=== PATIENT | male | born 1970 | race Caucasian/White ===

== ENCOUNTER 2018-06-15 16:02 | Observation (INO) | payer OTHER ==
--- NOTE | 2018-06-15 16:10 | EDPHY ---
H & P Time Seen by Provider: 06/15/18 16:09 HPI/ROS: CHIEF COMPLAINT: Chest discomfort HISTORY OF PRESENT ILLNESS: Patient had symptoms 1 week ago when walking cross the airport parking lot. He would waste picker his backpack knee would immediately get pressure which radiated to both shoulders his back and his jaw and he put his backpack down about 5-10 minutes later it went away. He got a rolling cart and was able to go home and felt okay until today when he is walking across the parking lot. He felt sudden tightness or discomfort shoulder shoulder across his chest radiating to his chin resolved now but his arms does feel really tired. Of note he had a calcium score last year that was negative and a negative treadmill stress test at [facility], he does have a grandfather of an aortic aneurysm. Right now chest symptoms have mostly resolved after about 10 min but his arms feel really tired. REVIEW OF SYSTEMS: Eye: no change in vision ENT: no sore throat Cardiac: HPI no palpitations or syncope Pulmonary: no cough or SOB Abdomen: no vomiting, diarrhea, abdominal pain Musculoskeletal: HPI Skin: no rash Neuro: no headache Constitutional: no fever : no urinary symptoms A comprehensive 10 point review of systems is otherwise negative aside from elements mentioned in the history of present illness. PAST MEDICAL HISTORY: Includes T4 fracture x2 from skiing, hypertension. Family history positive for aortic aneurysm in his grandfather Social history: Nonsmoker General Appearance: Alert and conversant, cooperative. Eyes: No scleral icterus. ENT, Mouth: Normal mucous membranes. Respiratory: Normal respiratory effort, breath sounds equal, lungs are clear to auscultation. Cardiovascular: Regular rate and rhythm. Pulses in both radial and both dorsalis pedis are normal. Gastrointestinal: Abdomen is soft and non tender. Neurological: Alert, face symmetric, normal motor and sensory in extremities. Bilateral orchard hand strength is good. Skin: Warm and dry, no rashes. Musculoskeletal: No peripheral edema. Psychiatric: Not agitated. Emergency Department course/MDM: Concern for ACS despite negative calcium scoring last year because of symptoms with exertion and radiation to his jaw, feel that would be less likely with thoracic spine problem. Differential diagnosis considered for chest pain including but not limited to myocardial ischemia, aortic dissection, pericarditis, pulmonary embolus, chest wall pain, pleural inflammation and pulmonary infectious causes. 1636: Troponin just less than the upper limit of normal at 0.07, patient declining chest CT because of history of recent radiation, plan consultation with Cardiology. Raylatha Serrano at 1645 for cardiology. He saw the patient in the emergency department, recommends admission to hospitalist service. Smoking Status: Never smoked Constitutional: Initial Vital Signs Temperature (C) 37 C 06/15/18 16:05 Heart Rate 89 06/15/18 16:05 Respiratory Rate 17 06/15/18 16:05 Blood Pressure 177/117 H 06/15/18 16:05 O2 Sat (%) 97 06/15/18 16:05 O2 Delivery Mode Room Air Allergies/Adverse Reactions: tetracycline [Tetracycline] Allergy (Verified 06/15/18 16:03) Home Medications: Medication Instructions Recorded NK [No Known Home Meds] 06/15/18 Medical Decision Making - Diagnostics EKG Interpretation: 12-lead EKG interpreted by me; official reading is in computer system. My interpretation is sinus rhythm, inferior Q noted, rate 95. A similar to November 2011. Differential Diagnosis: Differential diagnosis considered for chest pain including but not limited to myocardial ischemia, aortic dissection, pericarditis, pulmonary embolus, chest wall pain, pleural inflammation and pulmonary infectious causes. Consult/Admit Bed Type: [place] [id number] - Data Points Laboratory Results: Laboratory Results 06/15/18 16:20 06/15/18 16:20 06/15/18 06/15/18 06/15/18 16:25 16:23 16:20 WBC RBC Hgb POC Hgb 16.3 gm/dL gm/dL (13.7-17.5) Hct POC Hct 48 % % (40-51) MCV MCH MCHC RDW Plt Count MPV Neut % (Auto) Lymph % (Auto) Boyd % (Auto) Eos % (Auto) Baso % (Auto) Nucleat RBC Rel Count Absolute Neuts (auto) Absolute Lymphs (auto) Absolute Monos (auto) Absolute Eos (auto) Absolute Basos (auto) Absolute Nucleated RBC Immature Gran % Immature Gran # POC Sodium 143 mEq/L mEq/L (135-145) Sodium 139 mEq/L mEq/L (135-145) POC Potassium 3.6 mEq/L mEq/L (3.3-5.0) Potassium 4.0 mEq/L mEq/L (3.5-5.2) POC Chloride 103 mEq/L mEq/L (97-110) Chloride 105 mEq/L mEq/L (97-110) Carbon Dioxide 25 mEq/l mEq/l (22-31) POC Total CO2 29 mEq/L mEq/L (22-31) Anion Gap 9 mEq/L mEq/L (6-14) POC BUN 16 mg/dL mg/dL (7-23) BUN 16 mg/dL mg/dL (7-23) Creatinine 0.9 mg/dL mg/dL (0.7-1.3) POC Creatinine 1.1 mg/dL mg/dL (0.7-1.3) Estimated GFR > 60 Glucose 109 mg/dL H mg/dL (70-100) POC Glucose 110 mg/dL H mg/dL (70-100) Calcium 10.2 mg/dL mg/dL (8.5-10.4) POC Troponin I 0.07 ng/mL ng/mL (0.00-0.08) 06/15/18 16:20 WBC 10.06 10^3/uL H 10^3/uL (3.80-9.50) RBC 5.68 10^6/uL 10^6/uL (4.40-6.38) Hgb 16.5 g/dL g/dL (13.7-17.5) POC Hgb Hct 48.6 % % (40.0-51.0) POC Hct MCV 85.6 fL fL (81.5-99.8) MCH 29.0 pg pg (27.9-34.1) MCHC 34.0 g/dL g/dL (32.4-36.7) RDW 12.6 % % (11.5-15.2) Plt Count 250 10^3/uL 10^3/uL (150-400) MPV 9.6 fL fL (8.7-11.7) Neut % (Auto) 70.6 % % (39.3-74.2) Lymph % (Auto) 17.6 % % (15.0-45.0) Boyd % (Auto) 8.3 % % (4.5-13.0) Eos % (Auto) 2.1 % % (0.6-7.6) Baso % (Auto) 0.8 % % (0.3-1.7) Nucleat RBC Rel Count 0.0 % % (0.0-0.2) Absolute Neuts (auto) 7.11 10^3/uL H 10^3/uL (1.70-6.50) Absolute Lymphs (auto) 1.77 10^3/uL 10^3/uL (1.00-3.00) Absolute Monos (auto) 0.83 10^3/uL H 10^3/uL (0.30-0.80) Absolute Eos (auto) 0.21 10^3/uL 10^3/uL (0.03-0.40) Absolute Basos (auto) 0.08 10^3/uL 10^3/uL (0.02-0.10) Absolute Nucleated RBC 0.00 10^3/uL 10^3/uL (0-0.01) Immature Gran % 0.6 % % (0.0-1.1) Immature Gran # 0.06 10^3/uL 10^3/uL (0.00-0.10) POC Sodium Sodium POC Potassium Potassium POC Chloride Chloride Carbon Dioxide POC Total CO2 Anion Gap POC BUN BUN Creatinine POC Creatinine Estimated GFR Glucose POC Glucose Calcium POC Troponin I Medications Given: Discontinued Medications Amlodipine Besylate (Norvasc) 5 mg PO EDNOW ONE Stop: 06/15/18 17:53 Last Admin: 06/15/18 18:42 Dose: 5 mg Aspirin (Aspirin) 324 mg PO EDNOW ONE Stop: 06/15/18 17:55 Last Admin: 06/15/18 18:42 Dose: 324 mg Point of Care Test Results: Chemistry 06/15/18 06/15/18 16:25 16:23 POC Sodium 143 mEq/L mEq/L (135-145) POC Potassium 3.6 mEq/L mEq/L (3.3-5.0) POC Chloride 103 mEq/L mEq/L (97-110) POC Total CO2 29 mEq/L mEq/L (22-31) POC BUN 16 mg/dL mg/dL (7-23) POC Creatinine 1.1 mg/dL mg/dL (0.7-1.3) POC Glucose 110 mg/dL H mg/dL (70-100) POC Troponin I 0.07 ng/mL ng/mL (0.00-0.08) ISTAT H&H 06/15/18 16:25 POC Hgb 16.3 gm/dL gm/dL (13.7-17.5) POC Hct 48 % % (40-51) Departure - Departure Disposition: [facility] Inpatient Acute Clinical Impression: Chest pain Condition: Good
--- NOTE | 2018-06-15 16:26 | CPEKG ---
Test Reason : OPEN Blood Pressure : / mmHG Vent. Rate : 095 BPM Atrial Rate : 095 BPM P-R Int : 153 ms QRS Dur : 112 ms QT Int : 357 ms P-R-T Axes : 024 -09 -14 degrees QTc Int : 449 ms Sinus rhythm Inferior infarct, age indeterminate Confirmed by Jeremy Hansen ([id number]) on 06/15/2018 4:25:23 PM Referred By: Jeremy Hansen Confirmed By:Jeremy Hansen
[2018-06-15 16:31] LABS: PLATELET COUNT 250 10^3/uL (150-400)
[2018-06-15] MEDS ORDERED: ONDANSETRON DISINTEGRATING 4 MG TAB PO PRN (17:37)
[2018-06-15] MEDS ORDERED: ACETAMINOPHEN 325 MG TAB PO PRN (17:37)
[2018-06-15] MEDS ORDERED: ONDANSETRON 4 MG/2 ML VIAL IVP PRN (17:37)
[2018-06-15] MEDS ORDERED: amLODIPine BESYLATE 5 MG TAB PO ONE (17:52)
[2018-06-15] MEDS ORDERED: NITROGLYCERIN 0.4 MG BTL SL PRN (17:54)
[2018-06-15] MEDS ORDERED: ASPIRIN 81 MG CHEWABLE TAB PO ONE (17:54)
--- NOTE | 2018-06-15 18:56 | GCON ---
[f rep st] CONSULTATION REFERRING PHYSICIAN: Jeremy Hansen MD SUPERVISING RAIL CAR REPAIRMAN: Dr. Zuluaga. INDICATION FOR CARDIOLOGY CONSULTATION: Exertional chest pressure and jaw pain. HISTORY OF PRESENT ILLNESS: The patient is a pleasant 47-year-old male. He has significant past history that includes borderline hypertension. Patient reporting that up to 2 weeks ago, he had been feeling well. Then approximately on Tuesday, May 27, after a heavy day of skiing, he woke up with a mild midsternal chest pressure, went away fairly quickly and reported he did not think much about it. He does state on May 29, when returning from his ski trip at the airport, he was carrying some heavy bags, reporting again developing a similar midsternal chest pressure, this time radiating into both shoulders and up to his neck. He stopped, rested for a few seconds and reported symptoms subsided. He did report he did pickler helper his bag again and had similar symptoms, stopping, reporting that he had a Hilario help him carry his bags out from there, stating that after the symptoms of chest pain subsided, he became fairly fatigued, lasting approximately a day. He states he has had no further events of the symptoms until today, when he was walking across his work parking lot, developing a similar midsternal jaw pain with shoulder and neck. Did subside within a few minutes, but feeling significantly fatigued afterwards. He decided to come to [facility] for further evaluation. Upon arrival, he did undergo electrocardiogram, which noted sinus rhythm with noted inverted T -waves in lead III and AVF, with upward T-waves in V1. No acute ST or T-wave abnormalities. He also underwent laboratory studies, noting with a normal troponin level of 0.07. He was also noted to be extremely hypertensive upon arrival, with blood pressure of 177/117. At the time of my examination, he reports he is currently pain free, but does feel fatigued. He does state with each episode of his chest pressure, he has noted some mild nausea and diaphoresis, but has had no shortness of breath. He denies of any history of shortness of breath and reports no orthopnea, PND, edema, lightheadedness, near- syncope, or syncopal events. Reporting no symptoms suggestive of TIA or CVA. He does mention that since corporate auditor, he has been noting to have episodes of accelerated heart rate, coming on for few seconds, then dissipating, describing it as a "racing heartbeat." He does not feel that these have worsened and he has had no associated symptoms of near-syncope or syncopal events with them. He also informs me that in the prior week, he has been dealing with an upper respiratory infection with an ongoing cough, muscle aches and fatigue, reporting no fevers. Does feel that this has improved late last week, but continues to have a mild cough now. It is unknown if he has had any fevers with this. Denies of any bleeding issues, reporting no hematemesis or bloody stools. Patient with significant cardiac risk factors of borderline hypertension and sex. Denies any history of diabetes, smoking, hyperlipidemia, peripheral vascular disease, or family history of coronary artery disease at early on stage. PAST MEDICAL HISTORY: The patient's significant past medical history includes borderline hypertension , basal cell carcinoma and fractured T-spine. PAST SURGICAL HISTORY: TS spine fusion 3 years ago. He had a Mohs surgical procedure done approximately 3 weeks ago for his basal cell carcinoma. FAMILY HISTORY: He does state father had an aneurysm. Mother has hypertension. Denies of any family history of coronary artery disease at early on stage. SOCIAL HISTORY: He works in [employer] support. He is . He has 2 teenage children, who are both alive and well. He denies of any smoking. Reports no illicit drug use. Reports drinking 3 to 4 drinks on a daily basis. ALLERGIES: He has no known drug allergies. HOME MEDICATIONS: He reports none. REVIEW OF SYSTEMS: A 10-point review of systems is done on this patient, all negative except as mentioned above. PHYSICAL EXAMINATION: GENERAL APPEARANCE: A medium-built, well-groomed male. He is alert and oriented to person, place, time and situation. Appears to be under no acute distress at the time of my examination. VITAL SIGNS: Current vital signs are a blood pressure of 177/87, heart rate 84, respirations 18, saturating 95% on room air, temperature of 37.0 degrees Celsius. HEENT: Head is normocephalic. Lips and tongue are pink and moist with no signs of cyanosis. Conjunctivae are pink. NECK: Trachea is midline. +2 carotid pulses bilateral. No auscultated bruits. No jugular vein distention. RESPIRATORY: Lungs are clear to auscultation. No rhonchi, rales, or wheezes. No accessory muscle use. No intercostal muscle retraction noted. CARDIAC: Regular rate, regular rhythm, S1, S2. No S3, S4, gallops, rubs, or murmurs noted. ABDOMEN: Soft, nontender. Bowel sounds x4 quadrants. No organomegaly. No palpable masses. SKIN: [place], warm and dry. No cyanosis. No clubbing. No peripheral edema. A large healed incision on his upper midline back from previous surgery. Patient also noted with mild healing incision on the right side of face from recent Mohs procedure. VASCULAR: +2 carotids bilateral, +2 radials bilateral, +2 dorsalis pedis and posterior tibial pulses bilateral. LABS: Current laboratory studies show WBC of 10.06, hemoglobin of 16.5, hematocrit of 48.6, platelet count 250. Sodium 139, potassium 4.0, chloride 105 , CO2 25, BUN 16, creatinine 0.9. Glucose 109, calcium 10.2, troponin of 0.07. STUDIES: Electrocardiogram as mentioned above. Note, the patient had seen our practice in the past and he had an exercise treadmill done on March 14, 2017, in which he exercised for 12 minutes and 40 seconds, 14.7 METs. He obtained a heart rate of 167 beats per minute, which was 97% of his MPHR. He had no significant ST shifts at peak exercise suggesting of ischemia. Davidson treadmill score of 12, placing him at low cardiovascular risk. The patient also with a history of cardiac calcium score in which he was 0, which was done March 17, 2017. ASSESSMENT AND PLAN: 1. Exertional chest pressure: Concerning for patient with noted mildly abnormal EKG. In comparison to previous EKGs in our office of February of 2017, with no significant change. . Patient noted to have a normal troponin level of 0.07, but his symptoms do raise concern about potential possible exertional angina (CCS class III). It is felt best that patient be admitted overnight and placed on continuous cardiac monitoring. We will plan on cycling his troponins x3 and plan a repeated electrocardiogram. Symptoms may also be due to, but not limited to pulmonary embolism, aortic dissection, musculoskeletal, gastroesophageal reflux disease. I would also like him to get a D-dimer today. The patient's ER doctor, Dr. Rubio, has offered for him to undergo CT scan for evaluation due to family history of aortic aneurysm, which he declines, not wanting any further radiation. I would like him to take 324 mg of aspirin now. I have ordered him sublingual nitroglycerin to use p.r.n. Depending on results of his laboratory studies overnight, if troponins stay negative and he remains pain free, we will plan on performing an ETT MPI study in the morning. If he does bump his troponins or if he has more exertional chest pain, then we will consider having him undergo coronary angiogram. We will make him n.p.o. after midnight. Echocardiogram to be done 1st thing in the morning to evaluate LV systolic function. 2. Hypertension: The patient reporting borderline hypertension. He has extremely elevated blood pressure at this time. With his chest pain, I will give him 1 dose of Norvasc now to see if this helps bring his blood pressure down and is also known as antianginal medication. We will monitor and evaluate. Potentially, he may need to be put on long-term medication for this. Due to the elevated blood pressure and episode of chest pressure, I would like him to have an echocardiogram done to evaluate cardiac structure and function. 3. Palpitations: The patient reporting fluttering sensation for assisted. Reporting no associated symptoms of lightheadedness, near-syncope, or syncopal events. No arrhythmias have been noted on monitoring. We will continue him on telemetry as mentioned above. I have ordered for him to have a TSH level drawn with a.m. labs. We will have him get an echocardiogram, as mentioned above, to evaluate cardiac structure and function. Thank you for this consultation. We will be lack glad to follow along with you. /[id number]/MODL MTDD
--- NOTE | 2018-06-15 19:06 | PDGENHP ---
History and Physical - Chief Complaint Chest pain - History of Present Illness 47 y/o male w/hx of borderline HTN presenting w/ exertional-like chest pain symptoms which resolve after approximately 10 minutes. He tells me 2 weeks ago , he was skiing in [place]. After a full day of skiing, he was relaxing reading a book when he felt chest tightness bilaterally in the area of his clavicle w/radiation down both arms and up both sides of his neck. Experienced nausea, diaphoresis during the episode. Resolved about 10 minutes afterwards. While he was at the airport, he went to molded goods spot picker his heavy backpack and the symptoms returned. He set his bag back down and had to sit down. Then he retrieved a rolling cart to carry his bag the rest of the way. Last year at [facility], he had a negative calcium score and an unremarkable stress test. He is symptom free currently besides feeling fatigue and his arms feeling heavy/fatigue. History Information - Allergies/Home Medication List Allergies/Adverse Reactions: tetracycline [Tetracycline] Allergy (Verified 06/15/18 16:03) Home Medications: Cholecalciferol Vit D3 [Vitamin D3 (*)] 3,000 units PO DAILY 06/15/18 [Last Taken Unknown] Herbals/Supplements -Info Only 1 ea PO DAILY 06/15/18 [Last Taken Unknown] Multivitamins [Multivitamin (*)] 1 each PO DAILY 06/15/18 [Last Taken Unknown] I have personally reviewed and updated: family history, medical history, social history, surgical history Past Medical History: T4 fracture from skiing. Chronic bilateral thoracic back pain. Basal cell carcinoma - Past Medical History hypertension (Borderline) - Surgical History Reports: spinal surgery (Thoracic spine fusion 3 years ago) Additional surgical history: MOHS procedure a few weeks ago for his basal cell carcinoma which was on his nose - Family History Positive for: hypertension (Mother) Additional family history: Aneurysm - father - Social History Smoking Status: Never smoked Alcohol Use: Occasionally (3-5 drinks/week) Drug Use: None Additional social history: , has two sons and two dogs plus a mortage. Stress level has been increasing. Works as a retail support associate for a [employer] Review of Systems Review of Systems: ROS: 10pt was reviewed & negative except for what was stated in HPI & below Physical Exam Physical Exam: Lab data and imaging were reviewed. White blood cell count: 10.07 hemoglobin and hematocrit: 16.5 and 40.6 Platelet count: 250 Sodium: 139 Potassium: 4.0 Chloride: 105 Carbon dioxide: 25 BUN/Cr: 16/0.9 Troponin: 0.07 D-dimer: Less than 0.27 EKG: Mildly abnormal both comparison to previous EKGs in February 2017 there has been no significant change Chest x-ray: Negative Temp Pulse Resp BP Pulse Ox 36.4 C 85 18 169/99 H 96 06/15/18 18:07 06/15/18 18:26 06/15/18 18:26 06/15/18 18:26 06/15/18 18:26 Constitutional: no apparent distress, appears nourished, not in pain Eyes: PERRL, anicteric sclera, EOMI Ears, Nose, Mouth, Throat: moist mucous membranes, hearing normal, ears appear normal, no oral mucosal ulcers Cardiovascular: regular rate and rhythym, no murmur, rub, or gallop, No edema Peripheral Pulses: 2+: dorsalis-pedis (R), dorsalis-pedis (L) Respiratory: no respiratory distress, no rales or rhonchi, clear to auscultation Gastrointestinal: normoactive bowel sounds, soft, non-tender abdomen, no palpable masses Genitourinary: no bladder fullness, no bladder tenderness Skin: warm, normal color, no rashes or abrasions, no fluctuance, no induration, No mottled Musculoskeletal: full muscle strength, no muscle tenderness, normal joint ROM, no joint effusions Neurologic: AAOx3, sensation intact bilaterally, CN II-XII Intact Psychiatric: interacting appropriately, not anxious, not encephalopathic, thought process linear Lymph, Heme, Immunologic: no cervical LAD, no supraclavicular LAD Lab Data & Imaging Review 06/15/18 16:20 06/15/18 16:20 WBC 10.06 10^3/uL (3.80-9.50) H 06/15/18 16:20 RBC 5.68 10^6/uL (4.40-6.38) 06/15/18 16:20 Hgb 16.5 g/dL (13.7-17.5) 06/15/18 16:20 POC Hgb 16.3 gm/dL (13.7-17.5) 06/15/18 16:25 Hct 48.6 % (40.0-51.0) 06/15/18 16:20 POC Hct 48 % (40-51) 06/15/18 16:25 MCV 85.6 fL (81.5-99.8) 06/15/18 16:20 MCH 29.0 pg (27.9-34.1) 06/15/18 16:20 MCHC 34.0 g/dL (32.4-36.7) 06/15/18 16:20 RDW 12.6 % (11.5-15.2) 06/15/18 16:20 Plt Count 250 10^3/uL (150-400) 06/15/18 16:20 MPV 9.6 fL (8.7-11.7) 06/15/18 16:20 Neut % (Auto) 70.6 % (39.3-74.2) 06/15/18 16:20 Lymph % (Auto) 17.6 % (15.0-45.0) 06/15/18 16:20 [place] % (Auto) 8.3 % (4.5-13.0) 06/15/18 16:20 Eos % (Auto) 2.1 % (0.6-7.6) 06/15/18 16:20 Baso % (Auto) 0.8 % (0.3-1.7) 06/15/18 16:20 Nucleat RBC Rel Count 0.0 % (0.0-0.2) 06/15/18 16:20 Absolute Neuts (auto) 7.11 10^3/uL (1.70-6.50) H 06/15/18 16:20 Absolute Lymphs (auto) 1.77 10^3/uL (1.00-3.00) 06/15/18 16:20 Absolute Monos (auto) 0.83 10^3/uL (0.30-0.80) H 06/15/18 16:20 Absolute Eos (auto) 0.21 10^3/uL (0.03-0.40) 06/15/18 16:20 Absolute Basos (auto) 0.08 10^3/uL (0.02-0.10) 06/15/18 16:20 Absolute Nucleated RBC 0.00 10^3/uL (0-0.01) 06/15/18 16:20 Immature Gran % 0.6 % (0.0-1.1) 06/15/18 16:20 Immature Gran # 0.06 10^3/uL (0.00-0.10) 06/15/18 16:20 D-Dimer < 0.27 ug/mLFEU (0.00-0.50) 06/15/18 18:03 POC Sodium 143 mEq/L (135-145) 06/15/18 16:25 Sodium 139 mEq/L (135-145) 06/15/18 16:20 POC Potassium 3.6 mEq/L (3.3-5.0) 06/15/18 16:25 Potassium 4.0 mEq/L (3.5-5.2) 06/15/18 16:20 POC Chloride 103 mEq/L (97-110) 06/15/18 16:25 Chloride 105 mEq/L (97-110) 06/15/18 16:20 Carbon Dioxide 25 mEq/l (22-31) 06/15/18 16:20 POC Total CO2 29 mEq/L (22-31) 06/15/18 16:25 Anion Gap 9 mEq/L (6-14) 06/15/18 16:20 POC BUN 16 mg/dL (7-23) 06/15/18 16:25 BUN 16 mg/dL (7-23) 06/15/18 16:20 Creatinine 0.9 mg/dL (0.7-1.3) 06/15/18 16:20 POC Creatinine 1.1 mg/dL (0.7-1.3) 06/15/18 16:25 Estimated GFR > 60 06/15/18 16:20 Glucose 109 mg/dL (70-100) H 06/15/18 16:20 POC Glucose 110 mg/dL (70-100) H 06/15/18 16:25 Calcium 10.2 mg/dL (8.5-10.4) 06/15/18 16:20 POC Troponin I 0.07 ng/mL (0.00-0.08) 06/15/18 16:23 Assessment & Plan Plan: 47 y/o male presenting w/ intermittent chest pain that radiates down arms and up bilateral neck w/associated symptoms of nausea and diaphoresis occurring over the last 2 weeks. Family hx of HTN and aortic aneurysm. His vital signs presenting to the emergency room with the following: Blood pressure 177/117, heart rate 89, respirations 17, oxygen saturation on room air 97%, temperature 37.0 degrees. Current set of vitals: Blood pressure 169/99, heart rate 85, respiration 18, 96% on room air. Refused chest CTA by ED d/t recent radiation exposure, D-dimer negative. #Concern for ACS -Negative calcium score and stress test last year -Cards consulted and NEEDLE PROCESS FELT GOODS SUPERVISOR Ray Serrano evaluated pt. Please refer to Mr. Serrano's full evaluation in separate note. -Cycle trops Q6H x 2, first troponin negative -Lipid/Magnesium/Protime/TSH in AM or pending -Cont tele/PCU monitoring -EKG/Echo in AM -Received ASA -Nitroglycerin tabs PRN -If above is negative, suspect musculoskeletal component d/t hx T4 fx s/p spine fusion 3 years ago. Completed PT in the fall of last year. #HTN -Amlodipine initiated #Mild leukocytosis (10.06) -Suspect reactive, not infectious. Afebrile. Cont to monitor and if becomes symptomatic, check white count in AM. Diet: Cardiac, NPO at midnight tonight VTE PPX: Up ad shanta, SAMMY palmer Code: Full Dispo: Admit to observation
--- NOTE | 2018-06-15 19:06 | HOSPPROG ---
Hospitalist Progress Note Assessment/Plan: Pt seen and examined Please refer to TEST EVALUATOR's H&P Pt with exertional cp and HTN Cardiology consulted and we discussed the case VSS #Exertional chest pain #HTN Plan: per TEST EVALUATOR H&P cp r/o need for cardiac cath per cardiology Objective: Vital Signs Temp Pulse Resp BP Pulse Ox 36.4 C 85 18 169/99 H 96 06/15/18 18:07 06/15/18 18:26 06/15/18 18:26 06/15/18 18:26 06/15/18 18:26 - Physical Exam Constitutional: no apparent distress Eyes: PERRL, EOMI Ears, Nose, Mouth, Throat: moist mucous membranes Respiratory: no respiratory distress ICD10 Worksheet Patient Problems: Problems Problem Status Onset Chest pain Acute - ICD10 Problem Qualifiers (1) Chest pain
[2018-06-15] MEDS ORDERED: LORazepam 0.5 MG TAB PO PRN (22:32)
[2018-06-16 04:08] LABS: INR 1.04 (0.83-1.16); PROTIME(PATIENT) 13.2 SEC (12.0-15.0)
[2018-06-16] MEDS: METOPROLOL TARTRATE 25 MG TAB PO SCH ×2 (08:17→20:29)
[2018-06-16] MEDS ORDERED: ASPIRIN 325 MG TAB PO SCH (09:00)
[2018-06-16] MEDS ORDERED: amLODIPine BESYLATE 5 MG TAB PO SCH (09:00)
--- NOTE | 2018-06-16 09:16 | ECHO ---
[email or web address] [address] Main: [phone] Echocardiography Examination Transthoracic Name: SADIQ SINCLAIR MR#: Study Date: 06/16/2018 Study Time: 07:53 AM Date of : 1970 Age: 47 year(s) Height: 175.3 cm (69 in.) Weight: 79.38 kg (175 lb.) BSA: 1.95 m2 Gender: Male Examination: Echo Contrast: Image Quality: Adequate Rhythm: Normal sinus rhythm Heart Rate: 74 bpm BP: 142 mmHg/89 mmHg Indication: Hypertension, CP Procedure Staff Referring Physician: Communications Associate: Nury Morales [facility] Reading Physician: Stoney Zuluaga MD Requesting Provider: Ordering Physician: Ray Serrano NP Indication: Hypertension, CP Measurements Chambers AV/MV Label Value Normal Value Label Value Normal Value LVOT Vmax 1.14 m/s (0.7m/s - 1.1m/s) AV PGmax 5 mmHg LVOTd 2.3 cm (1.9cm - 2.1cm) AV Vmax 1.16 m/s LVDd, 2D 4 cm (4.2cm - 5.9cm) [place] (Vmax) 4.1 cm2 LVDs, 2D 2.4 cm (2.1cm - 4cm) MV E Vmax 0.64 m/s IVSd, 2D 0.7 cm (0.6cm - 1.1cm) MV A Vmax 0.69 m/s LVPWd, 2D 1 cm (0.6cm - 1cm) MV E/A 0.93 LVEF, BP 62 % (55% - 70%) MV E/E' lateral 9 LVEF, 2D 73 % (54% - 74%) MV E/E' septal 9.1 (0.5 - 1.7) RVDd, 2D 2.2 cm (1.9cm - 3.8cm) MV DT 88 ms TAPSE 1.9 cm MV E' septal 0.07 m/s LA Volume, BP 49 ml (18ml - 58ml) MV E' lateral 0.07 m/s LAESV index, BP 25.1 ml/m2 MV E/E' mean 9.14 RA Area 10 cm2 MV E' mean 0.07 m/s Additional Vessels TV/PV Label Value Normal Value Label Value Normal Value AoAsc 3.7 cm PV PGmax 5 mmHg AoRoot, 2D 3.8 cm (1.4cm - 2.6cm) PV Vmax, Caliper 1.07 m/s (0.6m/s - 0.9m/s) Patient: SADIQ SINCLAIR MRN: Study Date: 06/16/2018 Page 1 of 2 07:53 AM Conclusions Left Ventricle: EF range is estimated at 60 % - 65 %. Left ventricle wall thickness is normal. There is subtle hypokineisis of the distal anterior septum only seen in the parasternal long axis view. Aortic Valve: Trivial aortic regurgitation is present. Tricuspid Valve: Trivial tricuspid regurgitation. Findings Left Ventricle: Left ventricle is normal in size. Normal global systolic left ventricular function. EF evaluated by EF (single plane Mack's). The ejection fraction, measured by Simpsons method, is 62 %. EF range is estimated at 60 % - 65 %. Left ventricle wall thickness is normal. There is subtle hypokineisis of the distal anterior septum only seen in the parasternal long axis view.Left ventricular diastolic function parameters are normal. Right Ventricle: Normal size right ventricle. Right ventricular systolic function is normal. Left Atrium: The left atrium is normal in size. Mitral Valve: Mitral valve appears structurally normal. No mitral regurgitation. No mitral valve stenosis. Aortic Valve: The aortic valve is structurally normal and trileaflet. Trivial aortic regurgitation is present. There is no aortic stenosis. Tricuspid Valve: Tricuspid valve leaflets are structurally normal. Trivial tricuspid regurgitation. No tricuspid valve stenosis. Pulmonary artery pressure cannot be assessed due to inadequate TR signal. Aorta: The aortic root size in 2D measures 3.8 cm. The aortic root exhibits normal size. The ascending aorta measures 3.7 cm. Ascending aorta is normal in size. Aorta Measurements AoRoot, 2D is 3.8 cm. IVC: The inferior vena cava is poorly visualized. Pericardium: Trivial anterior pericardial effusion. Exam Details Procedure Ordered: Echo Procedure Status: Routine study Image Quality: Adequate Facility Location: Cardiac Echo 1 (No Signature Object) Patient: SADIQ SINCLAIR MRN: Study Date: 06/16/2018 Page 2 of 2 07:53 AM [id number]
[2018-06-16] MEDS ORDERED: diphenhydrAMINE 25 MG CAP PO ONE ×3 (09:37→10:12)
[2018-06-16] MEDS ORDERED: TEMAZEPAM 15 MG CAP PO PRN (09:37)
[2018-06-16] MEDS ORDERED: DIAZEPAM 5 MG TAB PO ONE ×2 (09:37→09:40)
[2018-06-16] MEDS ORDERED: FAMOTIDINE 20 MG TAB PO ONE ×2 (09:37→09:40)
[2018-06-16] MEDS ORDERED: ASPIRIN EC 325 MG TAB PO ONE (09:40)
[2018-06-16] MEDS ORDERED: NS 1,000 ML IV ONE (09:40)
[2018-06-16] MEDS ORDERED: NS 1,000 ML IV SCH ×2 (09:45→12:30)
--- NOTE | 2018-06-16 09:45 | PDCARPN ---
Cardiology Progress Note Chief Complaint: Patient reporting mild episode of chest pressure last evening. Currently pain- free. Assessment/Plan: Assessment: 47-year-old male with significant past history that include borderline hypertension. Experiencing ongoing exertional chest pressure over last 2 weeks. Initial EKG showing sinus rhythm with noted inverted T-waves in lead III and AVF and up or T-wave in V1. Normal troponin level on admission, with hypertension of 177/117. Admitted to PCU for overnight observation. 06/16/2018: Patient did have troponin elevation, peaking at 3:00 a.m. At 0.097, considered indeterminate area. Patient stating 1 episode of chest pressure last evening at 10:00 p.m.. Was given sublingual nitroglycerin, reporting pain- free within 5 min. Echocardiogram done this a.m. Showing subtle hypokinesis of distal anterior septum of LV. With normal ejection fraction at 60 65%. Plan: 1. Chest pressure: Patient continues to have a chest pressure with relief from nitroglycerin. Indeterminate troponin elevation with wall motion abnormality noted on echocardiogram. Is felt best that the patient to undergo coronary angiogram for further evaluation for cardiac ischemia. Risks and benefits of this procedure were explained to the patient and his , in which they both verbalize understanding. Patient has been started on aspirin therapy at 325 mg. He has also received a dose of metoprolol tartrate. Will hold off on anticoagulation, due to him going to the [employer] urgently. 2. Hypertension: Blood pressure improved since starting on amlodipine last evening. Will continue him on 5 mg p.o. Q.day. Started him on metoprolol tartrate at 12.5 mg p.o. Twice daily. Will re-evaluate after heart catheterization. 06/16/18 09:44 Subjective: Patient reporting mild episode of chest pressure last evening, relieved with sublingual nitroglycerin. Reporting currently pain-free. Denies of any shortness of breath, orthopnea, PND, edema, lightheadedness, near-syncope or syncopal events. Reviewed/Discussed With: other (Dr Zuluaga) Objective: Vital Signs (8 Hrs) Temp Pulse Resp BP Pulse Ox 06/16/18 08:22 37.9 C 74 18 157/102 H 92 06/16/18 08:17 81 142/89 H 06/16/18 03:41 36.9 C 68 16 146/86 H 96 Intake/Output (24 Hrs) 06/15/18 06/16/18 06/17/18 05:59 05:59 05:59 Intake Total 0 Balance 0 Intake: IV Intake (ml) 0 Other: Weight 80.1 kg Result Diagrams: 06/15/18 16:20 06/15/18 16:20 Cardiac Labs: Cardiac Lab Results (72 Hrs) 06/16/18 06/16/18 06/15/18 08:20 03:46 22:06 Troponin I 0.052 H 0.097 H 0.066 H - Physical Exam Constitutional: WDWN, no apparent distress Ears, Nose, Mouth, Throat: moist mucous membranes Cardiovascular: regular rate and rhythm, no murmurs, pulses symmetric bilat, No jugular vein distention, No carotid bruit Peripheral Pulses: 2+: carotid (R), carotid (L), dorsalis-pedis (R), dorsalis- pedis (L) Respiratory: clear to auscultate bilat, no crackles, no wheezes Gastrointestinal: normoactive bowel sounds Skin: warm, no edema Neurologic: AAOx3 Psychiatric: cooperative, interactive, following commands ICD10 Worksheet Patient Problems: Problems Problem Status Onset Chest pain Acute
[2018-06-16] MEDS ORDERED: FAMOTIDINE 20 MG TAB ONE (10:12)
[2018-06-16] MEDS ORDERED: DIAZEPAM 5 MG TAB ONE (10:13)
[2018-06-16] MEDS ORDERED: LIDOCAINE 1% 300 MG/30 ML SDV ONE (10:28)
[2018-06-16] MEDS ORDERED: IOPAMIDOL (ISOVUE-370) 150 ML BTL IV ONE (10:28)
[2018-06-16] MEDS ORDERED: MIDAZOLAM 2 MG/2 ML VIAL ONE ×2 (10:28→11:53)
[2018-06-16] MEDS ORDERED: fentaNYL 100 MCG/2 ML INJ ONE ×2 (10:28→11:53)
--- NOTE | 2018-06-16 11:08 | PDHPUP ---
History & Physical Update H&P update statement: This history and physical update is based on an assessment of the patient which was completed after admission or registration (within 24 hours), but prior to the surgery/procedure. H&P update: H&P reviewed & patient examined, no change in patient's condition since H&P completed
--- NOTE | 2018-06-16 11:09 | PDPROPOC ---
Sedation Plan of Care Sedation Plan of Care: mental status noted, patient educated of risks, benefits , alternatives, patient can tolerate sedation ASA Classification: ASA 2 Planned drugs: fentanyl, midazolam Mallampati Score: Class 2 Mallampati Reference Image: Patient passed 3-3-2 rule?: Yes
[2018-06-16] MEDS ORDERED: CLOPIDOGREL BISULFATE 75 MG TAB ONE ×2 (11:39→12:21)
[2018-06-16] MEDS ORDERED: BIVALIRUDIN 250 MG/5 ML VIAL IV ONE (11:39)
[2018-06-16] MEDS ORDERED: ATROPINE SULFATE 1 MG/10 ML SYR IVP PRN (12:16)
[2018-06-16] MEDS ORDERED: HYDROCODONE/APAP 5/325 TAB PO PRN (12:16)
[2018-06-16] MEDS ORDERED: CLOPIDOGREL BISULFATE 75 MG TAB PO ONE (12:16)
[2018-06-16] MEDS ORDERED: LISINOPRIL 5 MG TAB PO SCH (12:30)
--- NOTE | 2018-06-16 14:19 | CPIP ---
[f rep st] INVASIVE CARDIAC PROCEDURE DATE OF PROCEDURE: 06/15/2018 INDICATION FOR PROCEDURE: Non STEMI. PROCEDURE: 1. Nonselective right groin sheathogram with bilateral coronary angiography. 2. Left heart catheterization. 3. Left ventriculogram. 4. Percutaneous intervention of proximal mid left anterior descending utilizing Synergy 3.0 x 24 mm drug-eluting stent. HISTORY: Briefly, this is a 47-year-old male with history of recent worsening anginal symptoms. The patient came to the emergency room where he was found to have mildly elevated troponin. No signific ant EKG changes; however, the patient did have echocardiographic findings with anterior septal wall m otion abnormalities. Given these findings, the patient consented for left heart catheterization. DESCRIPTION OF PROCEDURE: After informed consent, the patient was brought to [facility] where the right corky in was prepped and draped in sterile fashion using lidocaine. A short 6-Tunisian sheath . T hrough the 6-Tunisian sheath, a JL4 catheter was advanced to the left coronary artery. Images of the l eft coronary artery showed normal left main. Left circumflex artery gave off a large ramus intermedi us, which was healthy and free of disease. The left circumflex artery system gave off a marginal art katharina proximally, which was healthy and free of disease, and terminating to a marginal 2 artery, which was healthy and free of disease. The LAD was a long vessel which wrapped around the apex. The LAD h ad a tubular high-grade stenosis of at least 80% to 90% in its proximal aspect after the takeoff of a aqknjb-mi-sarrl diagonal artery. Distal LAD was patent. After these images were obtained, the JL4 catheter was removed. A JR4 catheter was advanced to the right coronary artery. Images of the right coronary artery revealed normal os proximal and distal RCA. RPD and RPLS appeared to be healthy and free of disease. After these images had been obtained, the JR4 catheter was removed. The pigtail c atheter was advanced to the left ventricle. EDP was 10 mmHg. Left ventriculogram in the ESTRADA project ion showed an EF of 65% with no wall motion abnormalities. No pullback gradient between the LV and t he aorta. Pigtail catheter was removed over 0.035 guidewire. INTERVENTION REPORT: The patient was administered 600 mg of Plavix p.o. and started on an Angiomax b olus and drip. Utilized the EBU 0.035 guide catheter as the left coronary artery was subsequently en gaged. A Choice PT wire was placed down the LAD. Predilatation commenced with a 3.0 x 12 balloon ac ross the lesion at 10 atmospheres. After this was performed, the balloon was removed. Angiography w as obtained which showed improved patency of this vessel; however, there was some slight spreading of the lesion itself from the ballooning. We decided to proceed to cover this entire area with a 3.0 x 24 Synergy drug-eluting stent. This was deployed successfully at 12 atmospheres. After deployment, angiogram was again obtained which showed excellent patency of the stented area with no evidence of dissection or perforation. There was slight ostial pinching of the diagonal artery that came off pro ximal to the lesion; however, there was still ALISON-3 flow through this vessel. At this time, the wir e was removed, the guide catheter was removed with 0.035 wire. Right groin was closed with 6-Tunisian Angio-Seal. The patient tolerated the procedure well with no complications. IMPRESSION: 1. Successful percutaneous coronary intervention of high-grade proximal mid left anterior descending disease with Synergy 3.0 x 24 mm drug-eluting stent. 2. Widely patent ramus circumflex and right coronary arteries. 3. Normal ejection fraction. PLAN: The patient will have 3 hours bed rest. Remain on aspirin and Plavix for at least 1 year's ti me. Continue with aggressive medical therapy. Will follow up in the office after discharge. /[id number]/MODL
[2018-06-16] MEDS: MULTIVITAMINS 1 EACH TAB PO SCH (15:45)
[2018-06-16] MEDS: CHOLECALCIFEROL VIT D3 2,000 UNITS TAB/CAP PO SCH (15:45)
[2018-06-16] MEDS: LISINOPRIL 2.5 MG TAB PO SCH ×2 (15:45→16:30)
--- NOTE | 2018-06-16 16:11 | ASMTCMCOM ---
CM Note CM Note Notes: 47 y/o male was admitted last night for pain and tightness in his chest, radiating [id number] and to his chin. CM reviewed chart. Pt is independent with ADLs, lives at home with his . Works at [employer]. No PT or OT ordered. CM available if needs change. CM D/C plan: Likely independent Date Signed: 06/16/2018 04:10 PM Electronically Signed By:Mera De
--- NOTE | 2018-06-16 17:38 | HOSPPROG ---
Hospitalist Progress Note Assessment/Plan: The patient is a 47-year-old male with PMH borderline hypertension who was admitted for acute exertional chest pain, found to have NSTEMI and underwent PCI with stent placement. ASSESSMENT/PLAN: CAD, s/p stent x 1 LAD Unstable Angina, resolved NSTEMI, 2/2 above HTN HLD -DAP x 1 yr for TOMASA. -Lisinopril, Metoprolol, atorvastatin. -DC amlodipine and increase lisinopril dose for DC, so pt does not have to take as many different medications. -Monitor o/n -- if not complications, may DC to home in AM. VTE prophylaxis: Compression stockings, low risk Code Status: Full code Status: Changing to inpatient for > 2 midnight stay for need for ongoing monitoring following NSTEMI and PCI with stent placement. Disposition: [facility] with discharge anticipated tomorrow ____ SUBJECTIVE: Today patient feels well, no complaints post procedure. OBJECTIVE: Physical Exam: General: The patient is a male who is alert and in no acute distress. HEENT: normocephalic, extraocular movements intact, conjunctivae clear. Mucous membranes moist. Neck: trachea midline, no visible masses. CV: +S1/S2, RRR, no MRG. Resp: unlabored, CTAB no RRW. Abd: soft and nondistended. Musculoskeletal: Normal muscle tone/bulk. Neuro: cranial nerves II - XII grossly intact. Intact gross motor and sensory function. Psych: Appropriate mood and appropriate affect. Skin: No pallor. No petechiae. Heme/lymph: No peripheral edema at bilateral lower extremities. Labs/Imaging/Other Tests: Personally reviewed/interpreted. Objective: Vital Signs Temp Pulse Resp BP Pulse Ox 36.7 C 69 18 152/89 H 95 06/16/18 15:30 06/16/18 16:20 06/16/18 15:30 06/16/18 16:30 06/16/18 16:20 06/15/18 06/16/18 06/17/18 05:59 05:59 05:59 Intake Total 0 1190 Balance 0 1190 PT 13.2 SEC (12.0-15.0) 06/16/18 03:46 INR 1.04 (0.83-1.16) 06/16/18 03:46 - Time Spent With Patient Time Spent with Patient: greater than 35 minutes Time Spent with Patient: Greater than 35 minutes spent on this patients care, greater than 50% of time spent counseling, educating, and coordinating care regarding the above mentioned plan. ICD10 Worksheet Patient Problems: Problems Problem Status Onset Chest pain Acute
[2018-06-16] MEDS ORDERED: LISINOPRIL 2.5 MG TAB PO SCH (17:43)
[2018-06-16] MEDS: FAMOTIDINE 20 MG TAB PO SCH (20:29)
[2018-06-17 04:48] LABS: PLATELET COUNT 214 10^3/uL (150-400)
[2018-06-17] MEDS: FAMOTIDINE 20 MG TAB PO SCH (08:30)
[2018-06-17] MEDS: MULTIVITAMINS 1 EACH TAB PO SCH (08:30)
[2018-06-17] MEDS: METOPROLOL TARTRATE 25 MG TAB PO SCH (08:30)
[2018-06-17] MEDS: CHOLECALCIFEROL VIT D3 2,000 UNITS TAB/CAP PO SCH (08:31)
[2018-06-17] MEDS ORDERED: CLOPIDOGREL BISULFATE 75 MG TAB PO SCH (09:00)
[2018-06-17] MEDS ORDERED: ASPIRIN 81 MG CHEWABLE TAB PO SCH (09:00)
[2018-06-17] MEDS ORDERED: ATORVASTATIN CALCIUM 20 MG TAB PO SCH (09:00)
--- NOTE | 2018-06-17 09:07 | PDCARPN ---
Cardiology Progress Note Chief Complaint: Patient reports he feels great. Assessment/Plan: Assessment: 47-year-old male with significant past history that include borderline hypertension. Experiencing ongoing exertional chest pressure over last 2 weeks. Initial EKG showing sinus rhythm with noted inverted T-waves in lead III and AVF and up or T-wave in V1. Normal troponin level on admission, with hypertension of 177/117. Admitted to PCU for overnight observation. Echo 2018 showing subtle anterior wall abnormality with normal LVEF. Troponin minimum elevated. 06/16/2018 Coronary angiogram done yesterday, patient noted to have 90% stenosis of proximal LAD. 3.0 x 24 TOMASA implantation. Minimal non flow limiting coronary disease in rest coronary tree. Normal LVEF at 65% with no wall motion abnormalities. 06/17/2018: Patient reporting no chest pain pressure or symptoms suggesting of ischemia overnight. Continues cardiac monitoring noting sinus rhythm with no malignant arrhythmias or pauses. Blood pressure appears to be better controlled with systolics running in 130s. Plan: 1. NSTEMI: Status post percutaneous coronary intervention with TOMASA implantation of the LAD. Normal LV systolic function with no wall motion abnormalities based off of coronary angiogram. No further episodes of chest pain or pressure today. Patient will continue on dual anti-platelet therapy of aspirin and clopidogrel for a minimum of a year. He has been a started on atorvastatin for secondary risk prevention. Blood pressure management as mentioned below. Patient has been started on beta-bushra and ERMIAS-inhibitor. 2. Hypertension: Patient's blood pressure appears better controlled. Continue on current dose of metoprolol tartrate at 12.5 mg p.o. Twice daily. And lisinopril 5 mg p.o. Q.day. Patient has been encouraged low-sodium diet. He has been asked to monitor his blood pressure on a daily basis, keeping a log, and bring it to his next office appointment for further evaluation. With starting lisinopril, I would like him to get a basic metabolic panel done day before his office visit, Tuesday or of next week. 3. Hyperlipidemia: Patient has been started on atorvastatin, we will plan on repeating a fasting lipid and liver panel in 6-8 weeks for re-evaluation. Kimberly goal would be for his LDL to be less than 70. From cardiac standpoint, patient to be discharged home today after he has walked the unit. Post cardiac PCI discharge instructions went over the patient including monitoring for signs of infection bleeding precautions activity restrictions in the importance of dual anti-platelet therapy. Our office will call him on Tuesday to schedule him for a follow-up appointment in the next 7-10 days. He has been told if he has any problems or concerns post post discharge, he is to notify our office or return to the hospital. 06/17/18 08:57 Subjective: He reports no chest pain, pressure, shortness of breath, lightheadedness, palpitations, near-syncope or syncopal events. Reviewed/Discussed With: other (Dr Sharma) Objective: Vital Signs (8 Hrs) Temp Pulse Resp BP Pulse Ox 06/17/18 08:30 75 137/82 H 06/17/18 04:00 52 L 18 94 06/17/18 03:16 36.6 C 66 12 137/82 H 93 Intake/Output (24 Hrs) 06/16/18 06/17/18 06/18/18 05:59 05:59 05:59 Intake Total 0 2090 Balance 0 2090 Intake: Oral (ml) 440 IV Intake (ml) 0 1650 Other: Weight 80.1 kg Number of Voids Toilet 3 Result Diagrams: 06/17/18 03:12 06/17/18 03:12 Cardiac Labs: Cardiac Lab Results (72 Hrs) 06/16/18 06/16/18 06/15/18 08:20 03:46 22:06 Troponin I 0.052 H 0.097 H 0.066 H - Physical Exam Constitutional: WDWN, healthy appearing Ears, Nose, Mouth, Throat: moist mucous membranes Cardiovascular: regular rate and rhythm, no rubs, pulses symmetric bilat, No jugular vein distention, No carotid bruit Peripheral Pulses: 2+: carotid (R), carotid (L), dorsalis-pedis (R), dorsalis- pedis (L) Respiratory: clear to auscultate bilat, no crackles, no wheezes Gastrointestinal: normoactive bowel sounds, no tenderness, no masses Skin: warm, no edema, other (Right groin site, catheter insertion site, with no redness, swelling, drainage, or ecchymosis.) Neurologic: AAOx3 Psychiatric: cooperative, interactive, following commands ICD10 Worksheet Patient Problems: Problems Problem Status Onset Chest pain Acute
--- NOTE | 2018-06-17 10:12 | PDDCSUM ---
Discharge Summary Discharge Summary: Date of Admission: 06/15/2018 Date of Discharge: 06/17/2018 Discharge Diagnoses: CAD, s/p stent x 1 LAD Unstable Angina, resolved NSTEMI, 2/2 above HTN HLD Admission Diagnoses: Exertional CP HTN Consultants: Cardiology - Ray Serrano NP, Dr. Stoney Zuluaga [facility] Course: The patient presented with exertional chest pain. Troponins were trended and were noted to be elevated. EKG showed no acute ischemic changes. The patient was taken for coronary angiogram, which revealed high-grade stenosis of the proximal LAD. The patient received 1 drug-eluting stent in tolerated the procedure well. He was initiated on cardiac medications including metoprolol, lisinopril, atorvastatin, aspirin, and Plavix. He was feeling well after the procedure and was discharged the next day to home in stable condition. Physical Exam: Gen - alert, oriented, in NAD. MSK: ambulatory. Condition: Stable Discharged to: Home Pertinent tests/labs/imaging: Troponins - 0.07, 0.066, 0.097, 0.052. LDL calc- 129. Angiogram-PCI of proximal mid left LAD with a drug-eluting stent. High-grade stenosis 80-90% and proximal LAD. EKG-sinus rhythm, inverted T-waves lead 3, AVF. Upright T-waves in V1. Medications: Please see med rec form. Special instructions: Groin precaution: 1. No lifting more the 5-10 pounds for 1 week 2. May shower but no bath, hot tubs or swimming pool (no stand water submersion ) until all insertion site are healed 3. Keep band aid on insertion site if clothing causes pressure on the insertion site 4. Watch for sign of infection (fever, redness, swelling, drainage, night sweat or chills) Call Dr Zuluaga's office immediately if you have any of these symptoms [phone]. 5. If you notice a large amount of bleeding at site, hold press over it and call [phone] 6. No strenuous exercise for 2 weeks 7. Please use incentive spirometer every hour while awake for the next 2-3 days. 8. Take a 81 mg aspirin once a day 9. Take 75 mg of clopidogrel daily. 10. Please have blood work drawn next Tuesday. 11. Follow-up with Dr. Zuluaga 1 week. Office will call you Tuesday to schedule appointment. Return to hospital for concerning, severe symptoms such as uncontrolled pain, fainting, or difficulty breathing. Follow up: PCP in 1 week. [facility] in 1 week. > 30 minutes of total time was spent on counseling and coordination of care for this patient's discharge.
--- NOTE | 2018-06-17 10:25 | ASDISCHSUM ---
Discharge Information Plan Status:Home with No Needs Medically Cleared to Leave:06/17/2018 Discharge Date:06/17/2018 CM D/C Disposition:Home, Routine, Self-Care ADT D/C Disposition:Home, Routine, Self-Care Projected Discharge Date:06/17/2018 Transportation at D/C: Discharge Delay Reason: Follow-Up Date:06/17/2018 Discharge Slot: Final Diagnosis: Placement Information Patient Contact Information Contact Name:SONIYA Relationship: Address:[address] Work Phone: City:[place] Alternate Phone: State/Zip Code:[place] [address] Email: Financial Information Financial Class:[employer] Primary [facility] Desc[facility] Primary Plan Number:[id number] Secondary Plan Desc: Secondary Plan Number: Assessment Information LACE LACE Length of stay for Answers: 1 day current admission Acuity / Level of Answers: No Care: Did the patient have an inpatient admission? Comorbidities - select Answers: Opioid dependence all that apply / Chronic pain Other Notes: HTN # of Emergency department Answers: 1-2 visits in the last 6 months Score: 7 Date Signed: 06/17/2018 10:23 AM Electronically Signed By:Maia Cole RN [facility] Progress Note CM Note TIMBO Note Notes: 47 y/o male was admitted last night for pain and tightness in his chest, radiating [id number] and to his chin. CM reviewed chart. Pt is independent with ADLs, lives at home with his . Works at [employer]. No PT or OT ordered. CM available if needs change. CM D/C plan: Likely independent Date Signed: 06/16/2018 04:10 PM Electronically Signed By:Mera De Case Management Discharge Plan Note Case Management Discharge Discharge Order Complete? Answers: Yes Patient to Obtain Answers: Independently Medications Discharge Comments Notes: 06/17/2018 Case Management Note Pt to discharge independent with follow up as directed. Date Signed: 06/17/2018 10:24 AM Electronically Signed By:Maia Cole RN Intervention Information
[2018-06-17 10:37] VITALS: BP 161/81
--- NOTE | 2018-06-19 10:39 | CPEKG ---
Test Reason : OPEN Blood Pressure : / mmHG Vent. Rate : 063 BPM Atrial Rate : 062 BPM P-R Int : 159 ms QRS Dur : 122 ms QT Int : 422 ms P-R-T Axes : 036 033 043 degrees QTc Int : 433 ms Sinus rhythm Nonspecific intraventricular conduction delay Inferior infarct, old Abnrm T, consider ischemia, anterolateral lds Confirmed by Stoney Zuluaga ([id number]) on 06/19/2018 10:38:40 AM Referred By: Bradly Pierce Confirmed By:Stoney Zuluaga
--- NOTE | 2018-06-21 20:22 | CPEKG ---
Test Reason : OPEN Blood Pressure : / mmHG Vent. Rate : 075 BPM Atrial Rate : 071 BPM P-R Int : 154 ms QRS Dur : 115 ms QT Int : 372 ms P-R-T Axes : 036 026 008 degrees QTc Int : 416 ms Sinus rhythm Nonspecific intraventricular conduction delay Inferior infarct, old Confirmed by Steve Sharma ([id number] on 06/21/2018 8:21:36 PM Referred By: Bradly Pierce Confirmed By:Steve Sharma
--- NOTE | 2018-06-21 20:35 | CPEKG ---
Test Reason : OPEN Blood Pressure : / mmHG Vent. Rate : 062 BPM Atrial Rate : 062 BPM P-R Int : 158 ms QRS Dur : 118 ms QT Int : 444 ms P-R-T Axes : 034 021 017 degrees QTc Int : 451 ms Sinus rhythm Nonspecific intraventricular conduction delay Inferior infarct, old Similar to prior Confirmed by Steve Sharma ([id number] on 06/21/2018 8:35:00 PM Referred By: Bradly Pierce Confirmed By:Steve Sharma
== END 2018-06-17 10:58 | disposition home or self-care (01) ==
LOC: F2W 18:20
PROVIDERS: ADMIT Family Medicine; ATTEND Internal Medicine
DX: I21.4 Non-ST elevation (NSTEMI) myocardial infarction (principal); I25.110 Atherosclerotic heart disease of native coronary artery with unstable angina pectoris; I10 Essential (primary) hypertension; E78.5 Hyperlipidemia, unspecified; Z82.49 Family history of ischemic heart disease and other diseases of the circulatory system; Z87.81 Personal history of (healed) traumatic fracture; Z85.828 Personal history of other malignant neoplasm of skin
CPT/HCPCS: 71045; 92928; 93005; 93306; 93458; 99285; C1725; C1769; C1887; G0378; 82435-PO; 82565-PO; 82947-PO; 84132-PO; 84295-PO; 84484-ER; 84520-PO; 85014-ER; C1760; C1874; C9600; J0583; J1644; J2250; J3010; Q9967